=== PATIENT | male | born 1995 | race Caucasian/White ===

== ENCOUNTER 2019-06-27 18:02 | Emergency (ER) | payer SELFPAY ==
[~2019-06-27] VITALS: Ht 185.4 cm; Wt 68.2 kg
[2019-06-27 18:06] VITALS: BP 127/66; TEMP 98.3
[2019-06-27 19:27] VITALS: PULSE 85
== END 2019-06-27 19:27 | disposition home or self-care (01) ==
LOC: COL.ER 18:02
DX: T63.2X1A Toxic effect of venom of scorpion, accidental (unintentional), initial encounter (principal)